=== PATIENT | male | born 2000 | race Caucasian/White ===

== ENCOUNTER 2020-10-11 17:40 | Outpatient (CLI) | payer OTHER, SELFPAY ==
--- NOTE | ~2020-10-11 | CT_ITS ---
EXAMINATION: CT abdomen pelvis wo con DATE: 10/11/2020 18:14 INDICATION: Right lower quadrant abdominal pain TECHNIQUE: Computed tomography (CT) of the abdomen and pelvis was performed without intravenous contr ast. The dose-length product (DLP) was 526.75 mGy-cm. Automated exposure control and iterative recons truction technique were employed. COMPARISON: None FINDINGS: The lung bases are clear. The heart size is normal. The liver, spleen, pancreas, and adrena l glands are normal. The gallbladder is decompressed. The kidneys are unremarkable. The dilated appen graciela contains an appendicolith and measures up to 15 mm. There is a small amount of edematous strandin g of the periappendiceal fat. No perforation or periappendiceal abscess is identified. No pathologica lly enlarged abdominal or pelvic lymph nodes are identified. There is no free intraperitoneal gas or evidence of bowel obstruction. IMPRESSION: 1. Uncomplicated acute appendicitis. Reviewed, dictated and finalized at location A. ON [employer]PERATOR
== END 2020-10-11 17:41 | disposition home or self-care (01) ==
PROVIDERS: PCP Family Medicine; Visit Provider Family Medicine
DX: R10.31 Right lower quadrant pain (principal)
CPT/HCPCS: 74176

== ENCOUNTER 2020-10-11 19:40 | Observation (INO) | payer OTHER, SELFPAY ==
[2020-10-11 19:44] VITALS: BP 148/80; PULSE 75; RESP 16; TEMP 36.3; O2SAT 98
--- NOTE | 2020-10-11 19:55 | ED.ABDPAIN ---
HPI - Abdominal Pain General Chief Complaint: Abdominal Pain Stated Complaint: Appendicitis Time Seen by Provider: 10/11/20 19:49 Source: patient and family Mode of arrival: ambulatory Limitations: no limitations History of Present Illness HPI narrative: Patient is a 20-year-old male who presents to emergency department for evaluation of right lower quadrant pain for the last 3 days patient saw primary care for this at outpatient [facility] found to have uncomplicated appendicitis patient took Tylenol yesterday today has not required any medication denies any nausea vomiting bowel changes urinary symptoms Related Data Home Medications Medication Instructions Recorded Confirmed No Home Medications 10/11/20 10/11/20 Allergies Allergy/AdvReac Type Severity Reaction Status Date / Time No Known Allergies Allergy Verified 10/11/20 19:44 Review of Systems Review of Systems: All systems reviewed & are unremarkable except as noted in HPI and below PMFSH Past Medical History Medical History (Updated 10/11/20 @ 19:56 by Gigi Kimball PA-C) Normal colonoscopy Social History Social History Smoking status: Never smoker Gender identity (if verbalized by the patient): Male Exam Narrative: Exam Narrative: GENERAL: Well-appearing, well-nourished, and in no acute distress. HEAD: Normocephalic, atraumatic. EYES: PERRLA and EOMI. ENT: Nares clear, no rhinorrhea or epistaxis. Mucous membranes moist. CHEST: Clear to auscultation. No respiratory distress. No wheezes rales or rhonchi HEART: Regular rate and rhythm. No murmur heard. Normal peripheral pulses. ABDOMEN: Soft, right lower quadrant tenderness to palpation no rebound or guarding, nondistended EXTREMITIES: Normal range of motion. No edema. SKIN: Warm, dry, no rash. NEURO: No focal deficits. Alert and oriented x3. PSYCH: Normal mood and affect. Course Consultations Consultation #1: Discussed case with general surgeon ivette who will admit the patient would like them n.p.o. and [facility]ales for antibiotics Date: 10/11/20 Time: 20:02 Vital Signs Vital signs: Vital Signs Temperature 97.3 F L 10/11/20 19:44 Pulse Rate 75 10/11/20 19:44 Respiratory Rate 16 10/11/20 19:44 Blood Pressure 148/80 H 10/11/20 19:44 Pulse Oximetry 98 10/11/20 19:44 Temperature 97.3 F L 10/11/20 19:44 Pulse Rate 75 10/11/20 19:44 Respiratory Rate 16 10/11/20 19:44 Blood Pressure 148/80 H 10/11/20 19:44 Pulse Oximetry 98 10/11/20 19:44 MDM - Abdominal Pain MDM Narrative Medical decision making narrative: Patient will be admitted to the general surgeon for planned appendectomy hemodynamically stable antibiotics administrated will be hydrated pain well controlled Lab Data Result diagrams: 10/11/20 19:56 10/11/20 19:56 Labs: Lab Results 10/11/20 10/11/20 10/11/20 Range/Units 19:56 19:56 19:56 WBC 8.2 (4.5-10.0) K/mm3 RBC 4.67 (4.6-6.20) M/mm3 Hgb 14.1 (14.0-18.0) g/dL Hct 41.0 L (42.0-52.0) % MCV 87.8 (80-100) fl MCH 30.2 (26-34) pg MCHC 34.4 (32-36) g/dl RDW 12.8 (11.5-14.5) % Plt Count 230 (150-375) k/mm3 MPV 9.6 (7.4-10.4) fl Immature Gran % (Auto) 1.0 H (0-0.5) % Neut % (Auto) 65.1 (45.5-73.1) % Lymph % (Auto) 25.5 (18.3-44.2) % [place] % (Auto) 6.9 (2.6-8.5) % Eos % (Auto) 0.9 (0-4.4) % Baso % (Auto) 0.6 (0.2-1.2) % Lymph # (Auto) 2.08 (0.9-3.2) K/mm3 [place] # (Auto) 0.6 (0.1-0.6) K/mm3 Eos # (Auto) 0.1 (0-0.3) K/mm3 Baso # (Auto) 0.1 (0.0-0.1) K/mm3 Abs Immat Gran (auto) 0.08 H (0.00-0.031) K/mm3 Absolute Neuts (auto) 5.3 (1.3-6.7) K/mm3 Absolute Nucleated RBC 0.0 (0.0-0.012) K/mm3 Nucleated RBC % 0.0 (0.0-0.2) % Sodium Pending Potassium Pending Chloride Pending Carbon Dioxide Pending Anion Gap Pendi
[2020-10-11 20:03] LABS: Basophils Absolute Auto 0.1 K/mm3 (0.0-0.1); Basophils Percent Auto 0.6 % (0.2-1.2); Eosinophils Absolute Auto 0.1 K/mm3 (0-0.3); Eosinophils Percent Auto 0.9 % (0-4.4); Hemoglobin 14.1 g/dL (14.0-18.0); Immature Granulocyte Absolute 0.08 K/mm3 (0.00-0.031); Lymphocytes Absolute Auto 2.08 K/mm3 (0.9-3.2); Lymphocytes Percent Auto 25.5 % (18.3-44.2); Mean Corpuscular HGB Conc 34.4 g/dl (32-36); Mean Corpuscular Hemoglobin 30.2 pg (26-34); Mean Corpuscular Volume 87.8 fl (80-100); Mean Platelet Volume 9.6 fl (7.4-10.4); Monocytes Absolute Auto 0.6 K/mm3 (0.1-0.6); Monocytes Percent Auto 6.9 % (2.6-8.5); Neutrophils Absolute Auto 5.3 K/mm3 (1.3-6.7); Neutrophils Percent Auto 65.1 % (45.5-73.1); Platelet Count Result 230 k/mm3 (150-375); Red Blood Count 4.67 M/mm3 (4.6-6.20); Red Cell Distribution Width 12.8 % (11.5-14.5); White Blood Count 8.2 K/mm3 (4.5-10.0)
[2020-10-11 20:07] LABS: Add Urine Microscopic? YES; Amorphous Sediment Urine Moderate; Appearance Urine Cloudy (Clear); Bacteria Urine Trace /hpf; Bilirubin Urine Negative (Negative); Blood Urine Negative (Negative); Color Urine Straw (Yellow); Glucose Urine UA Negative (Negative); Ketones Urine Negative (Negative); Leukocyte Esterase Ur Negative LEU/UL (Negative); Nitrate Urine Negative (Negative); Protein Urine Negative (Negative); RBC Urine 0-2 /hpf (0-2); Specific Grav Ur 1.009 (1.001-1.035); Urobilinogen Urine Negative mg/dL (<2.0); WBC Urine 0-3 /hpf
[2020-10-11 20:20] LABS: Alanine Aminotransferase 16 U/L (4-50); Albumin Level 4.5 g/dL (3.5-5.1); Alkaline Phosphatase 48 U/L (38-126); Anion Gap 5 mmol/L (8-16); Aspartate Amino Transferase 27 U/L (17-59); Bilirubin,Total 1.4 mg/dL (0.2-1.3); Blood Urea Nitrogen 12 mg/dL (9-20); Calcium 9.4 mg/dL (8.4-10.2); Carbon Dioxide 30 mmol/L (22-30); Chloride 102 mmol/L (98-107); Estimated CRCL calculation 128 ml/min; Estimated Glomerular Filt Rate > 60; Glucose 120 mg/dL (75-110); Lipase 86 U/L (23-300); Potassium 3.5 mmol/L (3.4-5.0); Sodium 137 mmol/L (137-145)
[2020-10-11] MEDS: LORazepam INJ (*CRX) 2 MG/ML VIAL 1 MG IV PUSH (20:52)
[2020-10-11] MEDS: LACTATED RINGERS 1,000 ML 75 ML IV CONT (21:13)
[2020-10-11] MEDS: FAMOTIDINE 20 MG/2 ML VIAL IV PUSH (21:16)
[2020-10-11 21:26] VITALS: BP 146/73; PULSE 87; RESP 20; TEMP 36.2; O2SAT 100; BMI 27.4
--- NOTE | 2020-10-11 21:42 | PC.NURSE ---
This patient, Ivelisse Medina, was admitted to 2 Medical Room 240-01. Patient/family oriented to hospital policies and general routines including ID bracelet, bed and alarms, visiting hours, pain management, procedures, bathroom and other care routines, personal items, smoking policy, room service/diet, and visiting hours. Information on how to activate the Rapid Response Team has been discussed. Patient/Family are encouraged to report perceived risks to care and to ask questions if they do not understand what they are told or what they should do.
[2020-10-12] VITALS (12 sets, daily range): BP systolic 118–149; BP diastolic 52–73; PULSE 60–98; RESP 14–20; TEMP 36–36.7; O2SAT 94–100
[2020-10-12 05:48] LABS: Basophils Percent Auto 0.5 % (0.2-1.2); Eosinophils Absolute Auto 0.1 K/mm3 (0-0.3); Eosinophils Percent Auto 1.1 % (0-4.4); Hematocrit 38.1 % (42.0-52.0); Hemoglobin 12.8 g/dL (14.0-18.0); Immature Granulocyte Absolute 0.05 K/mm3 (0.00-0.031); Immature Granulocyte Percent A 0.6 % (0-0.5); Lymphocytes Absolute Auto 2.32 K/mm3 (0.9-3.2); Lymphocytes Percent Auto 29.3 % (18.3-44.2); Mean Corpuscular HGB Conc 33.6 g/dl (32-36); Mean Corpuscular Volume 86.4 fl (80-100); Mean Platelet Volume 10.2 fl (7.4-10.4); Monocytes Absolute Auto 0.7 K/mm3 (0.1-0.6); Monocytes Percent Auto 8.6 % (2.6-8.5); Neutrophils Absolute Auto 4.8 K/mm3 (1.3-6.7); Neutrophils Percent Auto 59.9 % (45.5-73.1); Platelet Count Result 228 k/mm3 (150-375); Red Blood Count 4.41 M/mm3 (4.6-6.20); Red Cell Distribution Width 12.5 % (11.5-14.5); White Blood Count 7.9 K/mm3 (4.5-10.0)
[2020-10-12] MEDS: LACTATED RINGERS 1,000 ML 75 ML IV CONT (07:55)
[2020-10-12] MEDS: FAMOTIDINE 20 MG/2 ML VIAL IV PUSH (07:55)
--- NOTE | 2020-10-12 09:52 | PM.IMHP ---
H&P: HPI History of Present Illness Date/Time: 10/12/20 09:52 Chief Complaint: RLQ pain Narrative: Ivelisse Medina is a 20 year old male who presented to the emergency department last night with right lower quadrant pain the past 2-3 days. He states that this was initially a vague periumbilical pain was predominantly just below his umbilicus. The pain then localized to the right lower quadrant. He was seen by his PCP and a CT of his abdomen and pelvis was obtained. This showed evidence of acute appendicitis, therefore he was referred to the emergency department. He denies any fevers or chills. He denies any change in bowel habits. He has never had any symptoms like this before. He states that since being admitted his pain is fairly well controlled and he only has pain when pushing on the area. Review of Systems Review of Systems: All systems reviewed & are unremarkable except as noted in HPI and below Eyes: Eyes: Denies change in vision ENT: Denies hearing loss, Denies neck pain and Denies sore throat Cardiovascular: Cardiovascular: Denies chest pain and Denies dyspnea Respiratory: Respiratory: Denies cough, Denies dyspnea and Denies wheezing Gastrointestinal: Gastrointestinal: Reports as per HPI Genitourinary: Genitourinary: Denies hematuria and Denies dysuria Musculoskeletal: Musculoskeletal: Denies arthralgias, Denies joint swelling and Denies neck pain Allergic/Immunologic: Allergic/Immunologic: Denies wheezing PMFSH Past Medical History Medical History (Updated 10/12/20 @ 09:56 by Wicho Mejía DO) Normal colonoscopy Surgical History Surgical History (Updated 10/12/20 @ 09:54 by Wicho Mejía DO) History of colonoscopy Social History Social History (Updated 10/12/20 @ 09:57 by Wicho Mejía DO) Smoking status: Never smoker Alcohol intake: never Substance use: never Occupation/Education: other Additional occupation/education comments: support team assoc Gender identity (if verbalized by the patient): Male Spiritual care concerns: No Meds Home Medications and Allergies Home Medications Medication Instructions Recorded Confirmed Type sertraline 50 mg PO DAILY 10/11/20 10/11/20 History Allergies Allergy/AdvReac Type Severity Reaction Status Date / Time No Known Allergies Allergy Verified 10/11/20 19:44 Vital Signs Vital Signs - 24 hr 10/11/20 19:44 10/11/20 21:26 10/12/20 04:00 Temperature 36.3 C L 36.2 C L 36.2 C L Pulse Rate 75 87 77 Respiratory Rate 16 20 18 Blood Pressure 148/80 H 146/73 H 120/52 L Pulse Oximetry 98 100 100 Exam Const: General: alert; No acute distress Orientation/consciousness: patient oriented x3 Limitations: no limitations HENMT: Head: normocephalic and atraumatic Ears: hearing grossly normal bilaterally General nose exam: Normal external nose present and Normal nares present Mouth: Yes Normal oral and palatal mucosa present and Yes moist mucous membranes Eyes: General: appearance normal, both eyes and all related structures Conjunctivae: conjunctivae normal Sclera: sclerae normal Pupils: Equal, round and reactive pupils present EOM: EOMs intact bilaterally Neck: Neck: normal visual inspection, full ROM, no lymphadenopathy, supple and no JVD Lymphatic: no lymphadenopathy noted Chest: Chest palpation & inspection: normal inspection of the chest Resp: Effort & Inspection: normal respiratory effort and able to speak in complete sentences Auscultation: clear to auscultation bilaterally Percussion: percussion normal Cardio: Jugular venous distension: no JVD Rate: regular rate Rhythm: regular rhythm Heart sounds: S1 normal heart sound present and S2 normal heart sound present Peripheral pulses: Peripheral pulses 2+ throughout GI: Inspection: normal to inspection GI Palp: Yes Soft to palpation, Yes Tenderness to palpation present (GI) (Right lower quadrant), No Guarding due to palpation present (GI), No Hernia
--- NOTE | 2020-10-12 13:19 | WPDHPUPDATE1 ---
History and Physical Update Update Date/Time: 10/12/20 13:19 History and Physical has been reviewed, including an updated exam of the patient. There are NO changes in the patient's condition. Risks, benefits, and alternatives have been discussed and questions answered. Patient agrees to proceed with procedure.
--- NOTE | 2020-10-12 13:20 | WPDANESEPPF ---
Anes - Initial Pre Proc Eval Procedure: Operation Date: 10/12/20 14:00 Proposed Procedures p Laparoscopic Appendectomy - Wicho Mejía DO Date/Time: 10/12/20 13:20 Surgeon: Wicho Mejía DO Pre Op Diagnosis: acute appendicitis Patient Data Age: 20 Gender: M Height: 1.85 m Weight: 94.3 kg Last Vital Signs Temp 36.3 C L 10/12/20 10:00 Pulse 60 10/12/20 10:00 Resp 14 10/12/20 10:00 BP 122/62 10/12/20 10:00 Pulse Ox 100 10/12/20 10:00 Allergies Allergy/AdvReac Type Severity Reaction Status Date / Time No Known Allergies Allergy Verified 10/11/20 19:44 Home Medications Medication Instructions Recorded Confirmed Type sertraline 50 mg PO DAILY 10/11/20 10/11/20 History Laboratory Tests 10/11/20 10/11/20 10/11/20 19:56 19:56 19:56 WBC 8.2 K/mm3 K/mm3 (4.5-10.0) RBC 4.67 M/mm3 M/mm3 (4.6-6.20) Hgb 14.1 g/dL g/dL (14.0-18.0) Hct 41.0 % L % (42.0-52.0) MCV 87.8 fl fl (80-100) MCH 30.2 pg pg (26-34) MCHC 34.4 g/dl g/dl (32-36) RDW 12.8 % % (11.5-14.5) Plt Count 230 k/mm3 k/mm3 (150-375) MPV 9.6 fl fl (7.4-10.4) Immature Gran % (Auto) 1.0 % H % (0-0.5) Neut % (Auto) 65.1 % % (45.5-73.1) Lymph % (Auto) 25.5 % % (18.3-44.2) [place] % (Auto) 6.9 % % (2.6-8.5) Eos % (Auto) 0.9 % % (0-4.4) Baso % (Auto) 0.6 % % (0.2-1.2) Lymph # (Auto) 2.08 K/mm3 K/mm3 (0.9-3.2) [place] # (Auto) 0.6 K/mm3 K/mm3 (0.1-0.6) Eos # (Auto) 0.1 K/mm3 K/mm3 (0-0.3) Baso # (Auto) 0.1 K/mm3 K/mm3 (0.0-0.1) Abs Immat Gran (auto) 0.08 K/mm3 H K/mm3 (0.00-0.031) Absolute Neuts (auto) 5.3 K/mm3 K/mm3 (1.3-6.7) Absolute Nucleated RBC 0.0 K/mm3 K/mm3 (0.0-0.012) Nucleated RBC % 0.0 % % (0.0-0.2) Sodium 137 mmol/L mmol/L (137-145) Potassium 3.5 mmol/L mmol/L (3.4-5.0) Chloride 102 mmol/L mmol/L (98-107) Carbon Dioxide 30 mmol/L mmol/L (22-30) Anion Gap 5 mmol/L L mmol/L (8-16) BUN 12 mg/dL mg/dL (9-20) Creatinine 0.90 mg/dL mg/dL (0.7-1.3) Estim Creat Clear Calc 128 ml/min ml/min Estimated GFR > 60 (59 - ) Glucose 120 mg/dL H mg/dL (75-110) Calcium 9.4 mg/dL mg/dL (8.4-10.2) Total Bilirubin 1.4 mg/dL H mg/dL (0.2-1.3) AST 27 U/L U/L (17-59) ALT 16 U/L U/L (4-50) Alkaline Phosphatase 48 U/L U/L (38-126) Total Protein 8.0 g/dL g/dL (6.3-8.2) Albumin 4.5 g/dL g/dL (3.5-5.1) Lipase 86 U/L U/L (23-300) Urine Color Straw (Yellow) Urine Appearance Cloudy H (Clear) Urine pH 8.0 (5.0-9.0) Ur Specific [place] 1.009 (1.001-1.035) Urine Protein Negative mg/dL mg/dL (Negative) Urine Glucose (UA) Negative mg/dL mg/dL (Negative) Urine Ketones Negative mg/dL mg/dL (Negative) Ur Blood (Man) Negative (Negative) Urine Nitrate Negative (Negative) Urine Bilirubin Negative (Negative) Urine Urobilinogen Negative mg/dL mg/dL (<2.0) Leukocyte Esterase Rfl Negative LOIDA/UL LOIDA/UL (Negative) Urine RBC 0-2 /hpf /hpf (0-2) Urine WBC 0-3 /hpf /hpf Amorphous Sediment Moderate H (None) Urine Bacteria Trace /hpf /hpf 10/12/20 04:54 WBC 7.9 K/mm3 K/mm3 (4.5-10.0) RBC 4.41 M/mm3 L M/mm3 (4.6-6.20) Hgb 12.8 g/dL L g/dL (14.0-18.0) Hct 38.1 % L % (42.0-52.0) MCV 86.4 fl fl (80-100) MCH 29.0 pg pg (26-34) MCHC 33.6 g/dl g/dl (32-36) RDW 12.5 % % (11.5-14.5) Plt Count 228 k/mm3 k/mm3 (150-375) MPV 10.2 fl fl
[2020-10-12] MEDS: LACTATED RINGERS 1,000 ML 30 ML IV CONT ×2 (13:35→16:04)
[2020-10-12] MEDS: BUPIVACAINE/EPINEPHRINE 0.5% 10 ML VIAL 30 ML INFILTRATE (15:03)
--- NOTE | 2020-10-12 15:31 | PM.PROC ---
Procedure Note - Detailed Date of procedure: 10/12/20 Pre-op diagnosis: acute appendicitis Post-op diagnosis: same Procedure performed: Laparoscopic Appendectomy Description of procedure: Procedure as well as risks, benefits, and alternatives were explained to the patient. The patient agreed to proceed. Written consent was obtained and placed in chart prior to procedure. The patient was brought back to surgical suite. He was placed supine on operating table. Time-out was done to confirm the patient and procedure. The patient was then intubated by the Anesthesia Department. His abdomen was prepped and draped in sterile fashion using chlorhexidine prep. A 5 mm incision was made just to the left of the patient's umbilicus and a 5 mm Optiview trocar was advanced through the abdominal layers under direct visualization. Once inside the peritoneal cavity, carbon dioxide insufflation was used to create a pneumoperitoneum. The camera was inserted and the abdomen was inspected. No immediate abnormalities were identified. The patient was then placed in slight Trendelenburg position and rotated to the left. A 5 mm incision was made in the suprapubic region in midline and a 5 mm trocar was inserted under direct visualization. A 12 mm incision was made in the left lower quadrant and a 12 mm trocar was inserted under direct visualization. The right lower quadrant was carefully inspected. The cecum was identified and then this was traced back to the appendix. The appendix was identified and grasped at the mesoappendix and lifted anteriorly. Careful blunt dissection was carried out at the base of the appendix through the mesoappendix using a [place] grasper. An Endo-RAY 45 mm blue load stapler was then advanced across the base of the appendix and clamped and fired. A white reload was then clamped across the mesoappendix and fired. This freed up our appendix completely. It was then placed in an EndoCatch bag and removed through the left lower quadrant port. The staple lines were then inspected. Hemostasis appeared adequate and the staple lines appeared secure. The area was then irrigated with sterile saline. The pelvis was then carefully inspected and irrigated with sterile saline as well and the remainder of the abdomen was carefully inspected. The patient was then flattened out in bed. One final inspection was made around the abdominal cavity and no other abnormalities were seen. The left lower quadrant port was removed and a Baljit-Jorden cone was used to approximate the fascia with a 0 Vicryl simple interrupted suture. The remaining ports were then removed under direct visualization. The camera was removed and the pneumoperitoneum was released. 0.5% bupivacaine with epinephrine was infiltrated locally around each of the incisions. The skin of the incisions was then approximated using 4-0 Monocryl subcuticular suture and Exofin glue was applied on top. The patient was then awakened from anesthesia, extubated, and transferred to Recovery. Anesthesia: GETA and local (0.5% bupivicaine with epi) Surgeon: iWcho Mejía DO Estimated blood loss (mL): 5 Pathology: yes (Appendix) Complications: No immediate complications Condition: stable Disposition: floor Findings: This is a 20-year-old man who presented to the emergency department with right lower quadrant pain for the past [address] of his abdomen and pelvis showed evidence of acute appendicitis. He had a normal white blood count and there was no evidence of perforation. He was admitted and started on broad-spectrum IV antibiotics. Discussions were made with the patient as treatment options and decision was made to proceed with laparoscopic appendectomy, possible open. Laparoscopic appendectomy was performed. The appendix appeared dilated and indurated skin wound but there was no evidence of perforation or abscess. The base of the appendix appeared healthy and viable. The appendix was removed and s
[2020-10-12] MEDS: fentaNYL CITRATE INJ (*CRX) 100 MCG/2 ML VIAL 25 MCG IV PUSH ×3 (15:45→15:58)
[2020-10-12] MEDS: HYDROcodone/acetaminophen (*CRX) 7.5-325 MG TABLET 1 TAB PO (16:43)
[2020-10-12] MEDS: ONDANSETRON INJ 4 MG/2 ML VIAL IV PUSH ×2 (18:16→22:25)
[2020-10-12] MEDS: MORPHINE SULFATE (*CRX) 4 MG/ML INJ IV PUSH (18:17)
[2020-10-12] MEDS: MORPHINE SULFATE (*CRX) 2 MG/ML INJ IV PUSH (20:33)
[2020-10-12] MEDS: SERTRALINE HCL 50 MG TABLET PO (22:24)
[2020-10-13] MEDS: HYDROcodone/acetaminophen (*CRX) 7.5-325 MG TABLET 1 TAB PO ×2 (01:29→08:38)
[2020-10-13 02:00] VITALS: BP 129/64; PULSE 78; RESP 14; TEMP 36.4; O2SAT 99
[2020-10-13 05:23] VITALS: BP 133/62; PULSE 77; RESP 16; TEMP 36.5; O2SAT 100
--- NOTE | 2020-10-13 08:51 | WPDANESPN ---
Anes - Prog Note Post-Op Date/Time: 10/13/20 08:51 Cardiovascular status: normal Respiratory status: normal Airway patency: baseline Mental status: baseline Post-Op hydration status: normal Vital Signs: Last Vital Signs Temp 36.5 C 10/13/20 05:23 Pulse 77 10/13/20 05:23 Resp 16 10/13/20 05:23 BP 133/62 10/13/20 05:23 Pulse Ox 100 10/13/20 05:23 Pain Score (VAS): 1 I/O: Intake & Output 10/12/20 10/13/20 10/13/20 23:59 07:59 15:59 Intake Total 1490 350 Output Total 450 300 Balance 1040 50 Laboratory Tests 10/12/20 04:54 10/11/20 19:56 Post-procedural complaints: nausea Patient Feedback: Patient satisfied with anesthetic care.
--- NOTE | 2020-10-13 09:47 | PM.DS ---
DS: Admitting Diagnosis Admitting Diagnosis Admitting Diagnosis: Acute appendicitis DS: Discharge Diagnosis Discharge Diagnosis (1) Acute appendicitis: Qualifiers: Acute appendicitis type: with localized peritonitis Appendicitis abscess presence: unspecified whether abscess present Appendicitis gangrene presence: unspecified whether gangrene present Appendicitis perforation presence: unspecified whether perforation present Qualified Code(s): K35.30 - Acute appendicitis with localized peritonitis, without perforation or gangrene Code(s): K35.80 - Unspecified acute appendicitis Status: Acute DS: Summary Hospital Course Reason for hospitalization: Acute appendicitis Hospital Course: This is a 20-year-old man who presented to the emergency department on 10/11 with complaints of right lower quadrant pain for the past 2-3 days. Workup in the emergency department and imaging showed evidence of acute appendicitis. He was started on broad-spectrum IV antibiotics and was admitted to the hospital. On 10/12/2019 he underwent laparoscopic appendectomy. Surgery was uncomplicated and the appendix was not perforated. He was returned to the surgical floor and diet and activity were advanced as tolerated. He was having significant abdominal pain that evening, therefore discharge was held up at that time. On postop day 1 he was feeling much better and tolerating his diet and activity. Pain was better controlled. He was discharged on postop day 1. Status at Discharge Functional status at discharge: independent ambulation Overall status at discharge: patient is progressing back to baseline Time Spent with Patient Time attestation: Total time spent providing and/or coordinating discharge services: Time spent: Less than 30 minutes Exam GI: Inspection: non-distended and incision (Intact with glue) GI Palp: Yes Soft to palpation and Yes Tenderness to palpation present (GI) (Incisional, predominantly in left lower quadrant) DS: Data Data Completed and Pending Pending studies at discharge: Pending at discharge 10/12/20 15:00 Surgical [PTH] Routine Discharge Plan Discharge Attending physician on discharge: Wicho Nieto Discharging Clinician: Wicho Nieto Anticipated Discharge Date/Time: 10/12/20 18:00 Patient Disposition: Home, Self-Care Activity: other - see discharge instructions Diet: as tolerated Wound Care Instructions: other - see discharge instructions Discharge Instructions: DISCHARGE INSTRUCTION SHEET FOR HERNIA, GALLBLADDER AND APPENDIX SURGERIES DR. NIETO PATIENT TO TAKE HOME 1. May shower in 24 hours, no soaking in bath x 2weeks. 2. Call office for: Wound increasingly painful or bleeding Vomiting Fever of greater than 101 degrees 3. If no bowel movement for three days, take 1 oz. (30 ml) Milk of Magnesia or MiraLax 17g 1 to 2 times daily. 4. No heavy lifting > 10-15 pounds x weeks for hernia repairs and 2-3 weeks for laparoscopic cholecystectomy or appendectomy. 5. No driving for 3 days or while taking narcotic pain medications. 6. Ice to surgical site for 48 hours (30 min on, then 30 min off). 7. Up walking 10-30 minutes three times per day. 8. Resume previous home medications. 9. Follow-up 10-14 days in office for wound check or as previously scheduled. ([phone]) 10. Oral pain medications prescription to be sent to pharmacy. Take Tylenol 500mg every 6 hours and Ibuprofen 600mg every 6 hours for the first 2 days, then as needed. 11. NUTRITION: Start out by drinking fluids and increase your diet as tolerated. If you experience nausea, try dry toast, crackers, and 7-UP. If nausea or vomiting persists, contact your surgeon?s office. 12. Gallbladders-Low Fat Diet for 2 weeks (send care note of low fat diet) 13. Inguinal Hernias-wear scrotal support for 48 hours 14. A
== END 2020-10-13 10:00 | disposition home or self-care (01) ==
LOC: ANHED 20:07 → ANH2MED 20:37
PROVIDERS: Emergency Medicine Emergency Medical Services; Admitting Provider Surgery; Emergency Provider Emergency Medicine; PCP Family Medicine; Visit Provider Surgery
PROC: 0DTJ4ZZ Resection of Appendix, Percutaneous Endoscopic Approach (ICD-10-PCS; CPT 44970; principal; 2020-10-12 14:00)
DX: K35.30 Acute appendicitis with localized peritonitis, without perforation or gangrene (principal)
CPT/HCPCS: 44970; 36415; 80053; 81001; 83690; 85025; 88304; 96361; 96365; 96366; 96375; 96376; 99285; A9270; G0378; G0379; J0330; J1100; J2060; J2250; J2270; J2405; J2543; J2704; J2710; J3010; J7030; J7120

== ENCOUNTER 2021-07-19 12:06 | Outpatient (CLI) | payer OTHER, SELFPAY ==
--- NOTE | ~2021-07-19 | XR_ITS ---
EXAMINATION: XR chest 2V EXAM DATE: 07/19/2021 12:32 INDICATION: Cough, COVID + 07/11. TECHNIQUE: Frontal and lateral projections of the chest obtained and reviewed. Comparison is made to prior examination from 04/13/2018. FINDINGS: The lungs are clear. There are no pleural effusions. The cardiomediastinal silhouette is within normal limits. There is no pneumothorax suspected. The bones and soft tissues are unremarkab le. IMPRESSION: No acute cardiopulmonary findings. Reviewed, dictated and finalized at location B.
[2021-07-19 12:34] LABS: Hematocrit 43.9 % (40.0-54.0); Hemoglobin 14.8 g/dL (14.0-18.0); Mean Corpuscular HGB Conc 33.7 g/dL (32.0-36.0); Mean Corpuscular Hemoglobin 28.7 pg (27.0-31.0); Mean Corpuscular Volume 85.2 fL (78.0-102.0); Platelet Count Result 215 K/mm3 (150-420); Red Blood Count 5.15 M/mm3 (4.70-6.10); Red Cell Distribution Width 12.2 % (11.6-14.4); White Blood Count 4.4 K/mm3 (4.8-10.8)
[2021-07-19 12:43] LABS: Anion Gap 11 mmol/L (8-16); Blood Urea Nitrogen 12 mg/dL (7-18); Calcium 8.5 mg/dL (8.5-10.1); Carbon Dioxide 30 mmol/L (21-32); Chloride 104 mmol/L (98-108); Estimated Glomerular Filt Rate > 60; Glucose 70 mg/dL (70-99); Osmolality Calculated 297 mOsm/kg (285-295); Potassium 4.1 mmol/L (3.5-5.1); Sodium 145 mmol/L (136-145)
[2021-07-19 13:03] LABS: Band Neutrophils Percent 1 % (0-6); Eosinophils Absolute Manual 0.04 K/mm3 (0.02-0.5); Eosinophils Percent Manual 1 % (1-6); Lymphocytes Absolute Manual 1.32 K/mm3 (1.1-4.5); Lymphocytes Percent Manual 30 % (18-44); Monocytes Absolute Manual 0.17 K/mm3 (0.1-0.90); Monocytes Percent Manual 4 % (3-9); Neutrophils Absolute Manual 2.86 K/mm3 (1.3-6.7); Neutrophils Percent Manual 64 % (46-73); Platelet Estimate Adequate (Adequate); Total Cells Counted 100
== END 2021-07-19 12:07 | disposition home or self-care (01) ==
LOC: CHSLAB 12:08
PROVIDERS: PCP Family Medicine; Visit Provider Family Medicine
DX: R05.9 Cough, unspecified (principal)
CPT/HCPCS: 36415; 71046; 80048; 85025